=== PATIENT | female | born 1935 | race Caucasian/White ===

== ENCOUNTER 2018-05-09 13:28 | Inpatient (IN) | payer MEDICARE ==
[~2018-05-09] VITALS: Ht 172.7 cm; Wt 73.0 kg
[2018-05-09] MEDS ORDERED: CETI10CA PO (13:40)
--- NOTE | 2018-05-09 14:30 | NUR ---
MD WANTED RN TO TRY AND AMBULATE WITH PT. PT UNABLE TO AMBULATE AT THIS TIME. INCREASED PAIN AND PRESSURE TO BILATERAL LE/HIPS. PT DENIES N/T TO LE. + BILATERAL LE SENSATION. NO DEFORMITIY OR INTERNAL ROTATION NOTED.
--- NOTE | 2018-05-09 15:16 | NUR ---
PT IN RADIOLOGY.
--- NOTE | 2018-05-09 15:38 | NUR ---
PT RETURNED FROM XR. RN PROVIDED PT WITH MULTIPLE WARM BLANKETS. VSS. FAMILY AT BEDSIDE.
--- NOTE | 2018-05-09 16:21 | NUR ---
PIV ACCESS OBTAINED. REPORT TO NINOSKA JONES.
[2018-05-09] MEDS ORDERED: FENTANYL PF 100 MCG/2ML ONE (16:34)
[2018-05-09] MEDS ORDERED: ETOMIDATE 20 MG/10 ML ONE (16:35)
--- NOTE | 2018-05-09 17:31 | NUR ---
REPORT RECEIVED FROM NINOSKA JONES. PT CURRENTLY IN AFIB. ERMD AWARE. STAT EKG ORDERED.
[2018-05-09] MEDS ORDERED: DILTIAZEM 5 MG/ML, 10ML ONE (17:47)
--- NOTE | 2018-05-09 17:54 | NUR ---
PT MEDICATED PER EMAR.
[2018-05-09] MEDS ORDERED: DILTIAZEM 5 MG/ML, 5ML IVPush ONE (18:00)
[2018-05-09 18:04] LABS: BASOPHILS # (AUTO) 0.01 x10^3/uL (0-0.1); BASOPHILS % (AUTO) 0 % (0-1); EOSINOPHILS % (AUTO) 0 % (1-7); LYMPHOCYTES # (AUTO) 0.66 x10^3/uL (1-3.4); LYMPHOCYTES % (AUTO) 5 % (22-44); MD NO; MEAN CORPUSCULAR HEMOGLOBIN 31.6 pg (27.0-34.8); MEAN CORPUSCULAR HGB CONC 33.2 g/dL (32.4-35.8); MEAN CORPUSCULAR VOLUME 95.2 fL (80-100); MEAN PLATELET VOLUME 7.7 fL (7.4-10.4); MONOCYTES # (AUTO) 0.36 x10^3/uL (0.2-0.8); MONOCYTES % (AUTO) 3 % (2-9); NEUTROPHILS # (AUTO) 11.51 x10^3/uL (1.8-6.8); NEUTROPHILS % (AUTO) 92 % (42-75); PLATELET COUNT 297 x10^3/uL (130-400); RED CELL DISTRIBUTION WIDTH 14.3 % (9.6-15.2)
[2018-05-09 18:11] LABS: INTERNATIONAL NORMALIZED RATIO 0.97 (0.93-1.1); PROTHROMBIN TIME 10.2 Seconds (9.6-11.5)
[2018-05-09 18:14] LABS: ALBUMIN 3.8 g/dL (3.4-5.0); ANION GAP 7 mmol/L (5-15); CALCIUM 8.5 mg/dL (8.5-10.1); CHLORIDE 105 mmol/L (98-107)
[2018-05-09 18:19] LABS: ALANINE AMINOTRANSFERASE 29 U/L (12-78); ALKALINE PHOSPHATASE 114 U/L (45-117); BILIRUBIN,TOTAL 0.4 mg/dL (0.2-1.0); CREATININE 0.85 mg/dL (0.55-1.02); TOTAL PROTEIN 7.6 g/dL (6.4-8.2); TROPONIN I < 0.015 ng/mL (0.000-0.045)
--- NOTE | 2018-05-09 18:43 | NUR ---
PT RESTING COMFORTABLY ON GURNEY. PT NSR 60'S AT THIS TIME. UP FOR RECHECK BY ERMD. NO COMPLAINTS OF PAIN OR DISCOMFORT. FAMILY AT BEDSIDE.
--- NOTE | 2018-05-09 19:01 | NUR ---
REPORT TO NINOSKA SHERIDAN
--- NOTE | 2018-05-09 19:49 | NUR ---
PT D/C BY NINOSKA HARRIS WITH D/C SUMMARY AND SCRIPTS. ALL QUESTIONS ANSWERED. PT IN ROOM PREPARING FOR D/C HOME WITH FAMILY. PT DENIES ANY OTHER NEEDS PERTAINING TO THIS VISIT.
--- NOTE | 2018-05-09 20:06 | NUR ---
;late entry: aprox 25 mins ago attempted to dc pt. this rn dressed pt and got her up to get in wc. pt was able to help stand then syncope in this rns arms. pt placed back to bed, applied pulse ox and monitors. pt getting ekg currently. pt got snacks and emt clara to apply card monitor, md ha made aware of syncope. pt sitting in bed with side rails up and call light in place, family made aware of change in poc for now. reported to primary rn ilir.
--- NOTE | 2018-05-09 21:00 | NUR ---
PT RESTING IN [facility] AT THIS TIME; NADN. FAMILY AT . PT DENIES ANY NEEDS AT THIS TIME.
--- NOTE | 2018-05-09 21:00 | NUR ---
Colt bloom in EDM - 05/10/18 at 0246 by FELICITY PT RESTING IN [facility] AT THIS TIME; FAMILY AT . PT DENIES ANY NEEDS AT THIS TIME.
[2018-05-09] MEDS ORDERED: MORPHINE SULFATE 4 MG/ML, 1ML ONE (23:05)
[2018-05-09] MEDS: LACTATED RINGERS 1,000 ML IV SCH (23:30)
[2018-05-09] MEDS: morphine SULFATE 10 MG/ML, 1ML IVPush PRN (23:34)
--- NOTE | 2018-05-09 23:40 | NUR ---
PT MEDICATED FOR PAIN PER MAR.
--- NOTE | 2018-05-09 23:49 | NUR ---
PT BACK FROM CT VIA DANNY. CALL LIGHT WITHIN REACH.
[2018-05-10 00:03] LABS: HEMOGLOBIN A1C 5.4 % (4.2-6.3)
[2018-05-10] MEDS ORDERED: OMNIPAQUE 350 MG/ML, 100ML BOTTLE ONE (00:04)
[2018-05-10] MEDS ORDERED: LORazepam 2 MG/ML, 1ML ONE (00:20)
--- NOTE | 2018-05-10 02:44 | NUR ---
BS REPORT OF PT TO NINOSKA BELLA. PT MOVED TO ER ROOM 04. PT VSS AND UPDATED. PT DENIES ANY NEEDS AT THIS TIME. CALL LIGHT IS WITHIN REACH.
--- NOTE | 2018-05-10 02:50 | NUR ---
ASSUMED CARE OF PATIENT. PATIENT MOVED TO ROOM 4. BEDSIDE REPORT GIVEN FROM NINOSKA SHERIDAN
[2018-05-10] MEDS ORDERED: MORPHINE SULFATE 4 MG/ML, 1ML ONE ×3 (03:30→08:24)
[2018-05-10] MEDS: morphine SULFATE 10 MG/ML, 1ML IVPush PRN ×3 (03:33→17:33)
--- NOTE | 2018-05-10 03:46 | NUR ---
MORPHINE GIVEN THROUGH IV. IV INFILTRATED. DOSE NOT RECEIVED. MD CALLED. PT IS [address]IN. TELEPHONE ORDER FROM DR JOHNSON FOR 2 MG OF MORPHINE IV TO BE GIVEN. READ BACK AND VERIFIED. NEW IV PLACED IN LEFT HAND 22 G. CALL LIGHT IN PLACE. WILL CONTINUE TO MONITOR.
[2018-05-10] MEDS ORDERED: MORPHINE SULFATE 4 MG/ML, 1ML IVPush ONE (04:00)
--- NOTE | 2018-05-10 05:35 | NUR ---
PT RESTING IN ROOM. NO ACUTE DISTRESS NOTED. VS STABLE. CALL LIGHT IN PLACE. CARDIAC MMONITOR ON. NSR NOTED. WILL CONTINUE TO MONITOR.
--- NOTE | 2018-05-10 05:56 | NUR ---
PT REPORTS INCREASED PAIN 9/10 IN LEFT WRIST. PT ALSO REPORTS SHE BELIEVES THE SPLINT IS TOO TIGHT. CAP REFILL LESS THAN 3 SECONDS. SPLIT LOOSENED. PT REPORTS SHE STILL HAS PAIN. DR HAGER CALLED FOR PAIN MED ORDER. ORDERED 0.5 MG OF DIALUDID EVER 4 HOURS FOR PAIN, MD WANTS MORPHINE ORDER LEFT IN THE COMPUTER BUT BOTH MEDS NOT GIVEN TOGETHER. ORDER READ BACK AND VERIFIED. WILL CONTINUE TO MONITOR.
[2018-05-10] MEDS ORDERED: HYDROmorphone 1 MG/ML, 1ML ONE ×2 (06:00→06:01)
[2018-05-10] MEDS: HYDROmorphone 2 MG/ML, 1ML IVPush PRN ×2 (06:03→19:53)
[2018-05-10 06:11] LABS: BASOPHILS % (AUTO) 0 % (0-1); EOSINOPHILS # (AUTO) 0.01 x10^3/uL (0-0.4); EOSINOPHILS % (AUTO) 0 % (1-7); LYMPHOCYTES # (AUTO) 0.77 x10^3/uL (1-3.4); LYMPHOCYTES % (AUTO) 9 % (22-44); MD NO; MEAN CORPUSCULAR HEMOGLOBIN 31.9 pg (27.0-34.8); MEAN CORPUSCULAR HGB CONC 33.7 g/dL (32.4-35.8); MEAN CORPUSCULAR VOLUME 94.4 fL (80-100); MEAN PLATELET VOLUME 7.7 fL (7.4-10.4); MONOCYTES # (AUTO) 0.78 x10^3/uL (0.2-0.8); MONOCYTES % (AUTO) 9 % (2-9); NEUTROPHILS # (AUTO) 7.37 x10^3/uL (1.8-6.8); NEUTROPHILS % (AUTO) 83 % (42-75); PLATELET COUNT 267 x10^3/uL (130-400); RED CELL DISTRIBUTION WIDTH 14.1 % (9.6-15.2)
[2018-05-10 06:18] LABS: ALANINE AMINOTRANSFERASE 27 U/L (12-78); ALBUMIN 3.7 g/dL (3.4-5.0); ANION GAP 7 mmol/L (5-15); CALCIUM 8.9 mg/dL (8.5-10.1); CHLORIDE 105 mmol/L (98-107)
--- NOTE | 2018-05-10 06:19 | NUR ---
PT MEDICATED AND REPOSITIONED FOR COMFORT. RIGHT ARM PLACED OVER PILLOW WITH ICE. WARM BLANKETS GIVEN. PT NOW RESTING WITH EYES CLOSED. VS STABLE. WOOD STOCK BLANK HANDLER NSR NOTED. CALL LIGHT IN PLACE. WILL CONTINUE TO MONITOR.
[2018-05-10 06:22] LABS: ALKALINE PHOSPHATASE 112 U/L (45-117); BILIRUBIN,TOTAL 0.7 mg/dL (0.2-1.0); CHOL/HDL RATIO 2.6; CHOLESTEROL, TOTAL 248 mg/dL (140-239); CREATININE 0.82 mg/dL (0.55-1.02); HDL CHOL % 38 % (28-40); HDL CHOLESTEROL (DIRECT) 95 mg/dL (40-60); LDL CHOLESTEROL,CALCULATED 138 mg/dL (54-169); LDL/HDL RATIO 1.5 (0.5-3.0); TOTAL PROTEIN 7.3 g/dL (6.4-8.2); TRIGLYCERIDES 76 mg/dL (50-200); VLDL CHOLESTEROL 15 mg/dL (0-25)
--- NOTE | 2018-05-10 06:56 | NUR ---
bedside report from NINOSKA Leal & report shared w/ preceptee NINOSKA Pollack, pt care assumed at this time. Pt asleep in bed, NAD, awaiting tele bed, WCTM.
--- NOTE | 2018-05-10 06:56 | NUR ---
BEDSIDE REPORT GIVEN TO NINOSKA ALVARADO
--- NOTE | 2018-05-10 08:00 | NUR ---
PT RESTING IN BED, NAD, NO NEEDS AT THIS TIME. AWAITING TELE BED, WCTM.
[2018-05-10] MEDS ORDERED: ACETAMINOPHEN 325 MG TABLET ONE ×2 (08:25→15:54)
[2018-05-10] MEDS: ACETAMINOPHEN 325 MG TABLET PO PRN ×2 (08:30→16:53)
--- NOTE | 2018-05-10 09:25 | NUR ---
Pt requesting something to eat, pt is currently NPO. LELAND Lemons called to request diet order.
--- NOTE | 2018-05-10 10:00 | NUR ---
PT RESTING IN BED, NAD, NO NEEDS AT THIS TIME. AWAITING TELE BED, WCTM.
--- NOTE | 2018-05-10 11:00 | NUR ---
DIET UPDATED BY PA, MEAL TRAY ORDERED, PT RESTING IN BED, NAD, NO NEEDS AT THIS TIME. AWAITING TELE BED, WCTM.
[2018-05-10] MEDS ORDERED: BACITRACIN ZINC OINT 500U/GM, 0.9 GM ONE (11:16)
--- NOTE | 2018-05-10 12:00 | NUR ---
PT RESTING IN BED, MEAL TRAY GIVEN. PT ATTEMPTED TO USE BEDPAIN AGAIN. WANTS TO GET UP TO COMMODE AFTER LUNCH/DRINKING
--- NOTE | 2018-05-10 13:05 | NUR ---
REPORT GIVEN TO BREAK RN
--- NOTE | 2018-05-10 14:30 | NUR ---
PT STOOD AND PIVOTED TO BEDSIDE COMMODE 1RN ASSIST WITHOUT INCIDENT
[2018-05-10 16:44] VITALS: BP 138/70
[2018-05-10] MEDS: LACTATED RINGERS 1,000 ML IV SCH (16:55)
[2018-05-10 19:30] VITALS: BP 130/72
[2018-05-10] MEDS: CETIRIZINE 10 MG TABLET PO SCH (19:53)
[2018-05-11] VITALS (8 sets, daily range): BP systolic 125–148; BP diastolic 63–96
[2018-05-11] MEDS: ACETAMINOPHEN 325 MG TABLET PO PRN (04:11)
[2018-05-11] MEDS: LACTATED RINGERS 1,000 ML IV SCH ×2 (06:16→20:40)
[2018-05-11] MEDS: KETOROLAC 30 MG/1 ML IVPush PRN ×2 (08:27→16:16)
[2018-05-11] MEDS: morphine SULFATE 10 MG/ML, 1ML IVPush PRN (17:03)
[2018-05-11] MEDS: CETIRIZINE 10 MG TABLET PO SCH (20:40)
[2018-05-12 01:39] VITALS: BP 123/62
[2018-05-12] MEDS: morphine SULFATE 10 MG/ML, 1ML IVPush PRN ×2 (03:46→10:09)
[2018-05-12] MEDS ORDERED: MAGNESIUM SULFATE PMX 2GM/50ML 50 ML IV ONE (07:30)
[2018-05-12] MEDS ORDERED: DILTIAZEM 5 MG/ML, 5ML IVPush ONE (07:30)
[2018-05-12 07:35] VITALS: BP 125/73
[2018-05-12] MEDS: GABAPENTIN 100 MG CAPSULE PO SCH ×2 (11:09→16:29)
[2018-05-12 14:09] VITALS: BP 146/70
[2018-05-12] MEDS ORDERED: CETI10TA18 PO (16:08)
[2018-05-12] MEDS ORDERED: ACET325T14 PO (16:08)
[2018-05-12] MEDS ORDERED: GABA-826 PO (16:08)
== END 2018-05-12 19:10 | DRG 563 ==
LOC: ED 14:46 → EDIP 21:39 → 5SO 05-10 16:36
PROVIDERS: ADMIT Internal Medicine; ATTEND Internal Medicine
PROC: 0PSHXZZ Reposition Right Radius, External Approach (ICD-10-PCS; principal; 2018-05-09)
DX: S52.571A Other intraarticular fracture of lower end of right radius, initial encounter for closed fracture (principal); I48.0 Paroxysmal atrial fibrillation; D18.03 Hemangioma of intra-abdominal structures; I49.5 Sick sinus syndrome; D72.829 Elevated white blood cell count, unspecified; S59.091A Other physeal fracture of lower end of ulna, right arm, initial encounter for closed fracture; E03.9 Hypothyroidism, unspecified; Z96.643 Presence of artificial hip joint, bilateral; Z96.649 Presence of unspecified artificial hip joint; Z66 Do not resuscitate; I08.2 Rheumatic disorders of both aortic and tricuspid valves; I27.20 Pulmonary hypertension, unspecified; W10.9XXA Fall (on) (from) unspecified stairs and steps, initial encounter; Y93.89 Activity, other specified; Y92.89 Other specified places as the place of occurrence of the external cause; Z95.0 Presence of cardiac pacemaker
CPT/HCPCS: 36415; 71045; 71275; 73523; 74175; 76705; 80053; 80061; 83036; 83735; 83880; 84443; 84484; 85025; 85610; 93005; 93306; 96374; G0378; J1170; J1885; Q9967; J2270; J3475; J7120